=== PATIENT | male | born 1975 | race African-American/Black ===

== ENCOUNTER 2025-03-12 07:53 | Outpatient (OUT) | payer OTHER, SELFPAY ==
--- NOTE | 2025-03-12 07:57 | ECG_ITS ---
The [facility] Test Date: 2025-03-12 Pat Name: TARA ENAMORADO Department: Room: - Gender: Male [place]: : 1975 Requested By: NOA TREJO Order Number: [id number] Reading MD: BOBBI METZGER M.D. Measurements Intervals [place] Rate: 47 P: 10 CT: 169 QRS: 57 QRSD: 102 T: 46 QT: 448 QTc: 397 Interpretive Statements SINUS BRADYCARDIA POSSIBLE LEFT ATRIAL ENLARGEMENT [-0.1mV P WAVE IN V1/V2] POSSIBLE RIGHT VENTRICULAR CONDUCTION DELAY [RSR (QR) IN V1/V2] LEFT VENTRICULAR HYPERTROPHY [VOLTAGE CRITERIA PLUS LAE OR QRS WIDENING] ST ELEVATION, CONSIDER LATERAL INJURY [MARKED ST ELEVATION W/O NORMALLY INFLECTED T WAVE IN I/aVL/V5/V6], early repolarization or repolarization abnormality from LVH Abnormal ECG No previous ECG available for comparison Electronically Signed On 03-12-2025 22:32:00 EDT by BOBBI METZGER M.D.
--- NOTE | 2025-03-12 07:57 | XR_ITS ---
The [address] [address] Patient Name: TARA ENAMORADO MRN: [id number] date: 1975 Sex: M Assigned Patient Location: [facility] Current Patient Location: [facility] Accession/Order Number: [id number] Exam Date: 03/12/2025 09:19 Report Date: 03/12/2025 09:20 At the request of: NOA TREJO MD Procedure: XR chest 2V PA AND LATERAL CHEST: CLINICAL HISTORY: Preoperative clearance COMPARISON: None There is no focal parenchymal consolidation, effusion or pneumothorax. The cardiac, hilar and mediastinal silhouettes are within normal limits. There is no vascular congestion. The visualized bony thorax is intact. There is minimal endplate spurring. XR/XR chest 2V IMPRESSION: NO ACUTE CARDIOPULMONARY ABNORMALITY. Impression dictated by: Anjana Ribera M.D. 03/12/2025 9:20 AM Dictation Location: [place] [address] Electronically authenticated by: [id number] Y Date: 03/12/2025 09:20
[2025-03-12 09:14] LABS: Basophils Percent Auto 0.7 % (0.2-2.0); Eosinophils Absolute Auto 0.1 10^3/uL (0.0-0.7); Hematocrit 41.8 % (42.0-54.0); Hemoglobin 13.8 g/dL (14.0-18.0); Immature Granulocytes Abs Auto 0.01 10^3/uL (0.00-0.03); Immature Granulocytes Pct Auto 0.2 % (0.0-0.5); Mean Corpuscular Hemoglobin 30.9 pg (25.9-34.0); Mean Corpuscular Volume 93.7 fL (80.0-94.0); Mean Platelet Volume 10.7 fL (9.5-13.5); Monocytes Absolute Auto 0.5 10^3/uL (0.3-0.8); Monocytes Percent Auto 8.5 % (1.7-12.0); Neutrophils Absolute Auto 3.4 10^3/uL (1.4-6.5); Neutrophils Percent Auto 55.6 % (43.0-75.0); Platelet Count 211 10^3/uL (150-450); Red Blood Count 4.46 10^6/uL (4.70-6.10); Red Cell Distribution Width 11.8 % (11.0-15.0); White Blood Count 6.1 10^3/uL (4.0-11.0)
[2025-03-12 09:37] LABS: Partial Thromboplastin Time 34.8 sec (22.3-36.2); Prothrombin Time 15.3 sec (9.0-11.6)
--- NOTE | 2025-03-12 09:59 | P.GSHP_ITS ---
History of Present Illness History of Present Illness Chief complaint: Bladder Tumor Narrative: Patient presents for presurgical testing. 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 He has been on Coumadin. The patient recently had gross hematuria and was evaluated with a cystoscopy and is now scheduled for a TURBT. He denies current hematuria, dysuria, or any other complaints. 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 Review of Systems ROS Narrative REVIEW OF SYSTEMS: Negative except as stated in HPI, ten or more systems reviewed. Constitutional: No fever, chills, weakness ENT: No sore throat or epistaxis Cardiovascular: No edema, chest pain, palpitations, or activity intolerance Respiratory: No shortness of breath, cough, or wheezing Musculoskeletal: No joint pain or swelling Gastrointestinal: No abdominal pain, constipation, diarrhea, or vomiting Genitourinary: No dysuria or hematuria Neurological: No numbness, tingling, weakness, or headache Psychiatric: No mood changes PFSH PFSH Medical History (Updated 03/09/25 @ 11:57 by Marissa Bee NP) BPH with obstruction/lower urinary tract symptoms ?N40.1 - Benign prostatic hyperplasia with lower urinary tract symptoms (ICD- 10) ?N13.8 - Other obstructive and reflux uropathy (ICD-10) Anticoagulated ?Z79.01 - MCC (current) use of anticoagulants (ICD-10) BPH (benign prostatic hyperplasia) ?N40.0 - Benign prostatic hyperplasia without lower urinary tract symptoms (ICD-10) Hyperlipidemia ?E78.5 - Hyperlipidemia, unspecified (ICD-10) Hematuria ?R31.9 - Hematuria, unspecified (ICD-10) Lesion of bladder ?N32.9 - Bladder disorder, unspecified (ICD-10) Bladder tumor ?D49.4 - Neoplasm of unspecified behavior of bladder (ICD-10) Pulmonary embolism ?I26.99 - Other pulmonary embolism without acute cor pulmonale (ICD-10) Factor V deficiency ?D68.2 - Hereditary deficiency of other clotting factors (ICD-10) Surgical History (Updated 03/09/25 @ 11:57 by Marissa Bee NP) S/P excision of lipoma ?Z98.890 - Other specified postprocedural states (ICD-10) ?Z86.018 - Personal history of other benign neoplasm (ICD-10) H/O colonoscopy ?Z98.890 - Other specified postprocedural states (ICD-10) H/O cystoscopy ?Z98.890 - Other specified postprocedural states (ICD-10) Family History (Updated 03/12/25 @ 08:23 by Marissa Bee NP) Other Family history of diabetes mellitus Family history of stroke Social History (Updated 03/12/25 @ 08:17 by Marissa Bee NP) Within the past year, how often did you have a drink containing alcohol: monthly or less Smoking status: Never smoker Non-prescribed substance use: denies use 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 Highest level of school completed/degree received: high school graduate Meds Home Medications and Allergies Home Medications ?Medication ?Instructions ?Recorded ?Confirmed ?Type enoxaparin 120 mg/0.8 mL 120 mg subcut Q24H 03/12/25 03/12/25 History subcutaneous syringe warfarin 5 mg tablet 5 mg PO DAILY 03/12/2503/12 History Allergies Allergy/AdvReac Type Severity Reaction Status Date / Time No Known Drug Allergies Allergy Verified 03/12/25 08:15 Exam Narrative Exam Narrative: Constitutional: Awake, alert, comfortable, well-appearing, nontoxic, interactive, vital signs as charted Head: Normocephalic, atraumatic Neck: Supple, normal appearance, normal range of motion, no meningeal signs, no lymphadenopathy Respiratory: No respiratory distress, breath sounds clear Cardiovascular: Bradycardic rate, regular rhythm, strong and regular heart tones Abdomen: Nontender, normal bowel sounds, soft, no CVA tenderness Musculoskeletal: Normal gait, no swelling or edema Skin: No rashes or induration, no lesions, only visible skin inspected Neuro: No neurological deficits, normal sensation Psychiatric: Oriented ?3, normal affect Assessment and Plan Assessment and Plan (1) Bladder tumor: Plan Cystoscopy, TURBT scheduled with Dr. Mejia March 15, 2025.
[2025-03-12 11:21] LABS: BUN Creatinine Ratio 12.1; Calcium 9.4 mg/dL (8.5-10.1); Carbon Dioxide 31.4 mmol/L (21.0-32.0); Chloride 105 mmol/L (98-107); Estimated GFR (African America >60 (>=60 mL/min/1.73m^2); Estimated GFR (Non-African Ame >60 (>=60 mL/min/1.73m^2); Glucose 100 mg/dL (74-106); Potassium 4.4 mmol/L (3.5-5.1); Sodium 142 mmol/L (136-145)
== END 2025-03-12 07:54 | disposition home or self-care (01) ==
LOC: PST 07:53
PROVIDERS: Family Provider Family Medicine; PCP Family Medicine; Visit Provider Urology
DX: Z01.810 Encounter for preprocedural cardiovascular examination (principal); Z01.812 Encounter for preprocedural laboratory examination; Z01.818 Encounter for other preprocedural examination; D49.4 Neoplasm of unspecified behavior of bladder; R31.9 Hematuria, unspecified
CPT/HCPCS: 71046; 80048; 85025; 85610; 85730; 93005; G0463

== ENCOUNTER 2025-04-17 08:01 | Outpatient (OUT) | payer OTHER, SELFPAY ==
--- OUTSIDE RECORDS SUMMARY | 2025-04-17 08:04 | XMS_ITS | Clinical Summary ---
Author Organization [facility] Address [address] [place] [address] Care Team Providers Care Improvement Lead Name Role Phone Izaiah Watson MD Primary Care Provider [phone] Duane Armand Christie Unavailable Kaylyn Allen RN Unavailable [phone] Radha Bardales PA-C Unavailable [phone] Allergies No known active allergies Medications warfarin (COUMADIN) 5 mg tablet Take 5 mg by mouth as directed. 05/11/2018 Active Active Problems Problem Noted Date Diagnosed Date Pulmonary embolus 08/12/2018 Heterozygous factor V Leiden mutation 08/12/2018 Social History Tobacco Use Types Packs/Day Years Used Date Smoking Tobacco: Never Smokeless Tobacco: Never PHQ-2 Answer Date Recorded PHQ-2 score 0 02/21/2019 Area Deprivation Index Answer Date Jonn rded National Score (1-100), lower number is lower ri sk Not on file 09/12/2020 State Score (1-10), lower number is lower risk N ot on file 09/12/2020 Data from: https://www.neighborhoodatlas.medicine.[facility].edu/. Last address used for calculation Not on file 09/12/2020 Sex and Gender Information Value Date Recorded Sex Assigned at Not on file Legal Sex Male 10:55 AM EDT Gender Identity Not on file Sexual Orientation Not on file Last Filed Vital Signs Vital Sign Reading Time Taken Comments Blood Pressure 120/75 02/21/2019 2:46 PM EDT Pulse 129 02/21/2019 2:46 PM EDT Temperature 36.7 C (98.1 F) 02/21/2019 2:46 PM EDT Respiratory Rate 18 02/21/2019 2:46 PM EDT Oxygen Saturation 99% 02/21/2019 2:46 PM EDT Inhaled Oxygen Concentration - - Weight 77.1 kg (170 lb) 02/21/2019 2:46 PM EDT Height 177.2 cm (5' 9.76 ) 02/21/2019 2:46 PM ED T Body Mass Index 24.56 02/21/2019 2:46 PM EDT Plan of Treatment Health Maintenance Due Date Last Done Comments Anxiety Screening 1992 Depression Screening 1992 HIV Screening 1992 Hepatitis C Screening 1992 DTaP,Tdap,Td Vaccine (1 - Tdap) 1993 Hepatitis B Vaccine (1 of 3 - 19+ 3-dose series) 10/[address] Colonography 2019 Cologuard (FIT-DNA) 2019 Colonoscopy 2019 Colorectal Cancer Screening 2019 Diabetes Screening 2019 Fecal Occult Blood 2019 Prostate Cancer Screening Discussion 2019 Sigmoidoscopy 2019 Covid-19 Vaccine ( - 2023-25 season) 2024 Pneumococcal Vaccine: 50+ (1 of 1 - PCV) 2024 Shingrix Vaccine (1 of 2) 2024 Influenza Vaccine (#1) 2025 Insurance [facility] MEDICA[facility] Care Teams Improvement Lead Relationship Specialty Start Date End Date Izaiah Watson MD [address] [place] [phone] PCP - General Family Medicine 05/18/18 Armand Zepeda [address] [place] [phone] Physician Hematology/Oncology 05/18/18 Kaylyn Allen RN [address] [place] [address] [place] [address] Dag Coater 05/18/18 Radha Bardales PA-C [address] [place] [address] [place] [address] Hematology/Oncology 05/18/18
--- OUTSIDE RECORDS SUMMARY | 2025-04-17 08:04 | XMS_ITS | Clinical Summary ---
Author Organization [facility] Address [address] [place] [address] Phone Care Team Providers Care Acquisition Cost Estimator Name Role Phone Unavailable Primary Care Provider Unavailabl e Encounters Date Type Department Care Team Description 03/14/2025 Scanned Document [facility] [address] [place] [address] Scanning, Generic Provider 03/13/2025 Scanned Document [facility] [address] [place] [address] Scanning, Generic Provider from Last 3 Months Social History Tobacco Use Types Packs/Day Years Used Date Smoking Tobacco: Never Assessed Sex and Gender Information Value Date Recorded Sex Assigned at Not on file Legal Sex Male 6:41 AM EST Gender Identity Not on file Sexual Orientation Not on file Plan of Treatment Upcoming Encounters Date Type Department Care Team (Late st Contact Info) Description 12/13/2025 3:00 PM EDT Office Visit [facility] [address] [address] Ozzie Sharma MD 703 [facility] 2, [address] [address] Procedures Procedure Name Priority Date/Time Associated Diagnosis Comments ECHOCARDIOGRAM 03/13/2025 from Last 3 Months Results * Echocardiogram (03/13/2025) Narrative 03/13/2025 Ordered by an unspecified provider. us Generic Provider Scanning CV ECHO PROCEDURES Fin al Result from Last 3 Months
--- OUTSIDE RECORDS SUMMARY | 2025-04-17 08:04 | XMS_ITS | Encounter Summary ---
Author Organization [facility] Address [address] [place] [address] Phone Care Team Providers Care Bridge Operator Name Role Phone Unavailable Primary Care Provider Unavailabl e Encounter Details Date Type Department Care Team (Late st Contact Info) Description 03/13/2025 Scanned Document [facility] [address] [place] [phone] Scanning, Generic Provider Social History Tobacco Use Types Packs/Day Years Used Date Smoking Tobacco: Never Assessed Sex and Gender Information Value Date Recorded Sex Assigned at Not on file Legal Sex Male 6:41 AM EST Gender Identity Not on file Sexual Orientation Not on file documented as of this encounter Plan of Treatment Upcoming Encounters Date Type Department Care Team (Late st Contact Info) Description 12/13/2025 3:00 PM EDT Office Visit [facility] [address] [phone] Ozzie Sharma MD [address] [facility] 2, [address] [address] documented as of this encounter Procedures Procedure Name Priority Date/Time Associated Diagnosis Comments ECHOCARDIOGRAM 03/13/2025 documented in this encounter Results * Echocardiogram (03/13/2025) Narrative 03/13/2025 Ordered by an unspecified provider. us Generic Provider Scanning CV ECHO PROCEDURES Fin al Result documented in this encounter Visit Diagnoses Not on filedocumented in this encounter
--- OUTSIDE RECORDS SUMMARY | 2025-04-17 08:04 | XMS_ITS | Encounter Summary ---
Author Organization [facility] Address [address] [place] [address] Phone Care Team Providers Care Material Requirements Worker Name Role Phone Unavailable Primary Care Provider Unavailabl e Encounter Details Date Type Department Care Team (Late st Contact Info) Description 03/14/[address] [facility] [address] [place] [place] [phone] Scanning, Generic Provider Social History Tobacco Use [...] Description 12/13/2025 3:00 PM EDT Office Visit [facility] [address] [phone] Ozzie Sharma MD 703 [facility] 2, [address] [address] documented as of this encounter Visit Diagnoses Not on filedocumented in this encounter
--- NOTE | 2025-04-17 08:09 | ECG_ITS ---
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: : 1975 Requested By: NOA TREJO Order Number: [id number] Reading MD: EULALIA HUNT Measurements Intervals Niland Rate: 50 P: 9 MS: 167 QRS: 104 QRSD: 102 T: 73 QT: 435 QTc: 400 Interpretive Statements SINUS BRADYCARDIA WITH OCCASIONAL SUPRAVENTRICULAR PREMATURE COMPLEXES POSSIBLE LEFT ATRIAL ENLARGEMENT [-0.1mV P WAVE IN V1/V2] MARKED RIGHT AXIS DEVIATION [QRS AXIS > 100] POSSIBLE LEFT VENTRICULAR HYPERTROPHY [VOLTAGE CRITERIA PLUS LAE OR QRS WIDENING] ST ELEVATION, CONSIDER LATERAL INJURY [MARKED ST ELEVATION W/O NORMALLY INFLECTED T WAVE IN I/aVL/V5/V6], early repolarization or repolarization abnormality from LVH ST DEVIATION AND MARKED T-WAVE ABNORMALITY, CONSIDER ANTERIOR ISCHEMIA [-0.5+ mV T WAVE IN V3/V4] Compared to ECG 03/12/2025 08:44:47 Right-axis deviation now present Electronically Signed On 04-19-2025 16:17:06 EDT by EULALIA HUNT
[2025-04-17 09:06] LABS: Hematocrit 43.2 % (42.0-54.0); Hemoglobin 13.7 g/dL (14.0-18.0); Immature Granulocytes Abs Auto 0.00 10^3/uL (0.00-0.03); Immature Granulocytes Pct Auto 0.0 % (0.0-0.5); Lymphocytes Absolute Auto 1.7 10^3/uL (1.2-3.8); Mean Corpuscular HGB Conc 31.7 g/dL (29.9-35.2); Mean Corpuscular Hemoglobin 30.0 pg (25.9-34.0); Mean Corpuscular Volume 94.5 fL (80.0-94.0); Platelet Count 215 10^3/uL (150-450); Red Blood Count 4.57 10^6/uL (4.70-6.10); White Blood Count 4.5 10^3/uL (4.0-11.0)
[2025-04-17 09:21] LABS: Anion Gap 11.1; Blood Urea Nitrogen 16.0 mg/dL (7.0-18.0); Calcium 9.0 mg/dL (8.5-10.1); Carbon Dioxide 30.4 mmol/L (21.0-32.0); Chloride 108 mmol/L (98-107); Estimated GFR (African America >60 (>=60 mL/min/1.73m^2); Estimated GFR (Non-African Ame >60 (>=60 mL/min/1.73m^2); Glucose 99 mg/dL (74-106); Potassium 4.5 mmol/L (3.5-5.1); Sodium 145 mmol/L (136-145)
[2025-04-17 09:24] LABS: INR 2.99; Partial Thromboplastin Time 33.3 sec (22.3-36.2); Prothrombin Time 28.4 sec (9.0-11.6)
== END 2025-04-17 08:02 | disposition home or self-care (01) ==
LOC: PST 08:02
PROVIDERS: Family Provider Family Medicine; PCP Student in an Organized Health Care Education/Training Program; Visit Provider Urology
DX: Z01.812 Encounter for preprocedural laboratory examination (principal); D49.4 Neoplasm of unspecified behavior of bladder
CPT/HCPCS: 80048; 85025; 85610; 85730; 93005; G0463

== ENCOUNTER 2025-04-24 08:23 | Day surgery (SDC) | payer OTHER, SELFPAY ==
[2025-03-12 08:42] VITALS: BP 118/79; PULSE 49; TEMP 36.3; O2SAT 100; BMI 22.6
--- OUTSIDE RECORDS SUMMARY | 2025-04-17 07:16 | XMS_ITS | Continuity of Care Document ---
Author Organization [facility] Address [address] [place] [address] Phone Care Team Providers Care Commercial Glazier Name Role Phone Izaiah Watson MD Primary Care Provider [phone] Izaiah Watson MD Referring Provider Cleo FloodD Attending Provider Kelly Magallanes [facility] Attending Provider Gamal Leslie DO Attending Provider [phone] Senia Moeller MD Emergency Provider Slim Braun MD Admit Provider Slim Braun MD Attending Provider Care Teams Patient Care Team Team Status: Active Member Role Status Dates Izaiah Watson MD Primary Care Provider Active Visit Care Team Team Status: Inactive Member Role Status Dates Izaiah Watson MD Primary Care Provider Active S tart: January 23, 2025 End: January 23, 2025 Izaiah Watson MD Referring Provider Active Star t: January 23, 2025 End: January 23, 2025 Cleo Flood PharmD Attending Provider Active Start: January 23, 2025 End: January 23, 2025 Visit Care Team Team Status: Inactive Member Role Status Niels Watson MD Primary Care Provider Active S tart: February 06, 2025 End: February 06, 2025 Izaiah Watson MD Referring Provider Active Star t: February 06, 2025 End: February 06, 2025 Kelly Morrissey RPH Attending Provider Active Start: February 06, 2025 End: February 06, 2025 Visit Care Team Team Status: Inactive Member Role Status Dates Izaiah Watson MD Primary Care Provider Active S tart: February 27, 2025 End: February 27, 2025 Izaiah Watson MD Referring Provider Active Star t: February 27, 2025 End: February 27, 2025 Kelly Morrissey RPH Attending Provider Active Start: February 27, 2025 End: February 27, 2025 Visit Care Team Team Status: Inactive Member Role Status Dates Izaiah Watson MD Primary Care Provider Active S tart: March 09, 2025 End: March 09, 2025 Izaiah Watson MD Referring Provider Active Star t: March 09, 2025 End: March 09, 2025 Kelly Morrissey RPH Attending Provider Active Start: March 09, 2025 End: March 09, 2025 Visit Care Team Team Status: Inactive Member Role Status Dates Izaiah Watson MD Primary Care Provider Active S tart: March 13, 2025 End: March 13, 2025 Gamal Ruiz DO Attending Provider Active S tart: March 13, 2025 End: March 13, 2025 Visit Care Team Team Status: Inactive Member Role Status Dates Izaiah Watson MD Primary Care Provider Active S tart: March 13, 2025 End: March 15, 2025 Senia Moeller MD Emergency Provider Active Start: March 13, 2025 End: March 15, 2025 Slim Braun MD Admit Provider Active Start: March 13, 2025 End: March 15, 2025 Slim Braun MD Attending Provider Active St art: March 13, 2025 End: March 15, 2025 Visit Care Team Team Status: Inactive Member Role Status Dates Izaiah Watson MD Primary Care Provider Active S tart: March 21, 2025 End: March 21, 2025 Izaiah Watson MD Referring Provider Active Star t: March 21, 2025 End: March 21, 2025 Kelly Morrissey RPH Attending Provider Active Start: March 21, 2025 End: March 21, 2025 Visit Care Team Team Status: Inactive Member Role Status Dates Izaiah Watson MD Primary Care Provider Active S tart: April 03, 2025 End: April 03, 2025 Izaiah Watson MD Referring Provider Active Star t: April 03, 2025 End: April 03, 2025 Kelly Morrissey RPH Attending Provider Active Start: April 03, 2025 End: April 03, 2025 Patient Care Team Team Status: Inactive Member Role Status Dates Izaiah Watson MD Primary Care Provider Active S tart: April 17, 2025 End: April 17, 2025 Izaiah Watson MD Referring Provider Active Star t: April 17, 2025 End: April 17, 2025 Kelly Morrissey RPH Attending Provider Active Start: April 17, 2025 End: April 17, 2025 Chief Complaint and Reason for Visit Chief Complaint Admit Date INR f/u January 23, 2025 10: 50am INR f/u February 27, 2025 12:48 pm pre-procedure instructions Lovenox March 09, 2025 6:53am R94.31 March 13, 2025 9:03 am abnormal ekg March 13, 2025 12:4 0pm INR f/u see [facility] March 21, 2025 7:48 am INR f/u April 03, 2025 7:44a m INR f/u April 17, 2025 10:4 8am Reason for Visit Admit Date Factor V Leiden January 23, 2025 10: 50am Pulmonary embolism and infarction January 23, 2025 10:50am RV (right ventricular) mural thrombus Ap ril 2024 10:50am Factor V Leiden February 06, 2025 10:50a m Pulmonary embolism and infarction February 10:50am RV (right ventricular) mural thrombus Ma 2024 10:50am Factor V Leiden February 27, 2025 12:48 pm Pulmonary embolism and infarction February 272024 12:48pm RV (right ventricular) mural thrombus Ma 2024 12:48pm Factor V Leiden March 09, 2025 6:53a m Pulmonary embolism and infarction March 092024 6:53am RV (right ventricular) mural thrombus Ju ne 2024 6:53am Abnormal ECG March 13, 2025 12:4 0pm Factor V Leiden March 13, 2025 12:4 0pm Pulmonary embolism and infarction March 042024 12:40pm Factor V Leiden March 21, 2025 7:48 am Pulmonary embolism and infarction March 042024 7:48am RV (right ventricular) mural thrombus Ju ne 2024 7:48am Factor V Leiden April 03, 2025 7:44a m Pulmonary embolism and infarction April 032024 7:44am RV (right ventricular) mural thrombus Ju ly 2024 7:44am Factor V Leiden April 17, 2025 10:4 8am Pulmonary embolism and infarction April 032024 10:48am RV (right ventricular) mural thrombus Ju ly 2024 10:48am Reason for Referral Referring Provider Name Referring Provider Address Referring Provider Phone Referral Date Requested Appointment Date Referral Reason Slim Braun [address] [place] [address] Work Phone: Previously scheduled appointment. Slim Braun [address] [email or web address] [id number] Work Phone: Previously scheduled appointment. You have gibran edward scheduled for a follow up appointment for the following date and time, please call to reschedule if needed. Allergies, Adverse Reactions, Alerts Allergen Type Severity Reaction Last Updated Verified Status No Known Allergies Allergy Unknown March 13, 2025 9:52a m Yes Active Social History Smoking Status Status Start Date End Date Date of Observa tion Never smoked tobacco (finding) March 14, 2025 12:36pm Observation Status Observation Response Date of Response Legal Sex Male (finding) Sex Assigned At Male October Social History Assessments Assessment Value Date Recorded SDOH Follow up March 14, 2025 9:27am Question Answer Date Recorded Has the SDOH screening changed since admission? N March 14, 2025 9:27am Family History Relationship Condition Age at Onset Recorded Date/T emani father Diabetes mellitus Unknown Unknown mother Diabetes mellitus Unknown Unknown Problems Active Problems Medical Problem Onset Date Status RV (right ventricular) mural thrombus Unknown Active Factor V Leiden Unknown Active Right ventricular mass Unknown Active Pulmonary embolism and infarction Unknown Active Abnormal ECG Unknown Active Inactive/Resolved Problems Medical Problem Onset Date Status Hematuria Unknown Resolved Elevated CK Unknown Resolved Diverticulosis Unknown Resolved Diarrhea Unknown Resolved Supratherapeutic INR Unknown Resolved Medications Medication Status Dose Units Route Directions Qty Days St art Date Stop Date End Date Instructions Adherence Sod Picosulf-Ma g Ox-Citric Ac (Clenpiq) 10 mg-3.5 gram- 12 gram/175 mL solution Discont inued 175 ML PO Daily 350 1 May 05, 2024 12:00a m Augus t 2023 9:09a m take first dose at 3:00 PM followed by four 8oz glasses of liquid take second dose at 9:00 PM followed by 3 8oz glasses of liquid Enoxaparin (Lovenox) 80 mg/0.8 mL Syringe Discont inued 80 MG SUBCUT BID@0400,16 00 0 May 11, 2018 12:00a m Augus t 2017 8:28a m see handwritten Rx - DISCONTINUE once INR between 2-3 Warfarin (Coumadin) 5 mg Tablet Discont inued 5 MG PO Daily May 11, 2018 12:00a m Febru 2023 12:31 pm Aspirin 81 mg tablet,chew able Active 81 MG PO every week May 29, 2024 12:00a m FreeTextSi capsule Orally twice a week; Note: Source Status: Taking; Provider: Remigio Gallo ( ) Unknown Calcium Carbonate (Calcium 600) 600 mg calcium (1,500 mg) tablet Active 600 MG PO .prn May 29, 2024 12:00a m Unknown Magnesium Oxide 250 mg magnesium tablet Active 250 MG PO .prn May 29, 2024 12:00a m Free[employer]Si tablet with a meal Orally Once a day; Note: Source Status: Taking; Provider: Remigio Gallo ( ) Unknown Cholecalcif verna (Vitamin D3) 125 mcg (5,000 unit) capsule Active 5000 UNIT PO .prn May 29, 2024 12:00a m Unknown Warfarin (Coumadin) 5 mg tablet Active 5 MG PO Daily 2023 12:31p m Unknown Immunizations Immunization Event Date Not Given Reason Dose Number Production Operator Lot Number Vaccine Information Statement (VIS) Detail Administration Location COVID-19 Heather Gross ([employer]) September 21, 2021 COVID-19 Heather Gross ([employer]) October 12, 2021 Procedures Procedure Date Performed Status XR chest 2V* March 13, 2025 9:57am completed [facility] Angio March 15, 2025 10:15am compl eted March 15, 2025 10:15am complete d Relevant Diagnostic Tests and/or Laboratory Data Laboratory Results Test Collection Date/Time Result Date/Time Result Interpretation Reference Range Result Comment Performing Site Bedside INR (LAB) January 23, 2025 10:57am January 23, 2025 11:08am 2.0 Bedside INR (LAB) February 06, 2025 10:52am February 06, 2025 11:01am 3.1 Bedside INR (LAB) February 27, 2025 12:49pm February 27, 2025 1:02pm 3.1 Bedside INR (LAB) March 09, 2025 6:55am March 09, 2025 7:21am 2.5 Bedside INR (LAB) March 21, 2025 7:52am March 21, 2025 8:09am 1.9 Bedside INR (LAB) April 03, 2025 7:46am April 03, 2025 8:23am 2.4 Correcte d White Blood Count March 15, 2025 7:18am March 15, 2025 7:50am 4.6 10*3/uL 4.1-10.5 [facility] [id number] [address] [facility] [address] Uncorrec cash WBC Count March 15, 2025 7:18am March 15, 2025 7:50am 4.6 10*3/uL 4.1-10.5 [facility] [id number] [address] [facility] [address] Red Blood Count March 15, 2025 7:18am March 15, 2025 7:50am 4.30 10*6/uL 3.90-5.60 [facility] [id number] [address] [facility] [address] Hemoglob in March 15, 2025 7:18am March 15, 2025 7:50am 13.0 g/dL 13.0-17.0 [facility] [id number] [address] [facility] [address] Hematocr it March 15, 2025 7:18am March 15, 2025 7:50am 39.6 % 38.8-50.0 [facility] [id number] [address] [place] [address] Mean Corpuscu lar Volume March 15, 2025 7:18am March 15, 2025 7:50am 92.0 fL 83.5-101 [facility] [id number] [address] [facility] [address] Mean Corpuscu lar Hemoglob in March 15, 2025 7:18am March 15, 2025 7:50am 30.2 pg 27.5-35.2 [facility] [id number] [address] [place] [address] Mean Corpuscu lar Hemoglob in Concent March 15, 2025 7:18am March 15, 2025 7:50am 32.9 g/dL 32.5-35.6 [facility] [id number] [address] [place] [address] Red Cell Distribu tion Width March 15, 2025 7:18am March 15, 2025 7:50am 12.7 % 12.0-14.8 [facility] [id number] [address] [place] [address] Platelet Count March 15, 2025 7:18am March 15, 2025 7:50am 189 10*3/uL 150-450 [facility] [id number] [address] [place] [address] Mean Platelet Volume March 15, 2025 7:18am March 15, 2025 7:50am 9.0 fL 6.6-10.1 [facility] [id number] [address] [place] [address] Monocyte Distribu tion Width March 13, 2025 10:36am March 13, 2025 10:54am 17.54 % 0.00-20.00 [facility] [id number] [address] [place] [address] Neutroph ils (%) (Auto) March 15, 2025 7:18am March 15, 2025 7:50am 53.1 % . [facility] [id number] [address] [place] [address] Lymphocy brandie (%) (Auto) March 15, 2025 7:18am March 15, 2025 7:50am 35.5 % . [facility] [id number] [address] [place] [address] Monocyte s (%) (Auto) March 15, 2025 7:18am March 15, 2025 7:50am 8.0 % . [facility] [id number] [address] [facility] [address] Eosinoph ils (%) (Auto) March 15, 2025 7:18am March 15, 2025 7:50am 2.9 % . [facility] [id number] [address] [facility] [address] Basophil s (%) (Auto) March 15, 2025 7:18am March 15, 2025 7:50am 0.5 % . [facility] [id number] [address] [facility] [address] Nucleate d RBC Relative Count (auto) March 15, 2025 7:18am March 15, 2025 7:50am 0.1 /100{WBC} 0-0.5 [facility] [id number] [address] [place] [id number] Neutroph ils # (Auto) March 15, 2025 7:18am March 15, 2025 7:50am 2.5 10*3/uL 1.8-7.7 [facility] [id number] [address] [facility] [address] Lymphocy brandie # (Auto) March 15, 2025 7:18am March 15, 2025 7:50am 1.6 10*3/uL 1.00-4.8 [facility] [id number] [address] [place] [address] Monocyte s # (Auto) March 15, 2025 7:18am March 15, 2025 7:50am 0.4 10*3/uL 0.0-0.8 [facility] [id number] [address] [facility] [address] Eosinoph ils # (Auto) March 15, 2025 7:18am March 15, 2025 7:50am 0.1 10*3/uL 0.0-0.45 [facility] [id number] [address] [facility] [address] Basophil s # (Auto) March 15, 2025 7:18am March 15, 2025 7:50am 0.0 10*3/uL 0.0-0.2 [facility] [id number] [address] [place] [id number] Prothrom bin Time March 15, 2025 7:18am March 15, 2025 8:15am 12.4 s 9.0-12.9 A hematocrit value greater than 55% may lead to inaccurate results in coagulation testing. Patients having hematocrit values >55% require a special collection tube for coagulation studies. Please contact the laboratory at for redraw instruction s. [facility] [id number] [address] [facility] [address] Prothrom b Time Internat ional Ratio March 15, 2025 7:18am March 15, 2025 8:15am 1.1 INR Therapeutic Range A) Pre- and Peroperativ e OAT started two weeks before surgery. NOT HIP SURGERY: 1.5 - 2.5 HIP SURGERY: 2 - 3B) Primary and secondary prevention of venous THROMBOSIS: 2 - 3C) Active venous thrombosis, pulmonary embolismand prevention of recurrent venous thrombosis: 2 - 3D) Prevention of arterial thromboembo lismincludi ng patients with mechanical heart valves: 3 - 4.5 [facility] [id number] [address] [facility] [address] Activate d Partial Thrombop last Time March 15, 2025 7:18am March 15, 2025 8:15am 25.6 s 25.1-36.5 A hematocrit value greater than 55% may lead to inaccurate results in coagulation testing. Patients having hematocrit values >55% require a special collection tube for coagulation studies. Please contact the laboratory at for redraw instruction s. [facility] [id number] [address] [facility] [address] Urine Color March 13, 2025 12:15pm March 13, 2025 12:41pm Yellow Yellow [facility] [id number] [address] [facility] [address] Urine Appearan ce March 13, 2025 12:15pm March 13, 2025 12:41pm Clear Clear [facility] [id number] [address] [facility] [address] Urine Specific [place] March 13, 2025 12:15pm March 13, 2025 12:41pm 1.032 Above high normal 1.001-1.03 0 [facility] [id number] [address] [facility] [address] Urine pH March 13, 2025 12:15pm March 13, 2025 12:41pm 5.5 5.0-9.0 [facility] [id number] [address] [facility] [address] Urine Leukocyt e Esterase March 13, 2025 12:15pm March 13, 2025 12:41pm Negative Negative [facility] [id number] [address] [facility] [address] Urine Nitrite March 13, 2025 12:15pm March 13, 2025 12:41pm Negative Negative [facility] [id number] [address] [facility] [address] Urine Protein March 13, 2025 12:15pm March 13, 2025 12:41pm Trace mg/dL Above high normal Negative [facility] [id number] [address] [facility] [address] Urine Glucose (UA) March 13, 2025 12:15pm March 13, 2025 12:41pm Normal mg/dL Normal [facility] [id number] [address] [facility] [address] Urine Ketones March 13, 2025 12:15pm March 13, 2025 12:41pm Negative Negative [facility] [id number] [address] [facility] [address] Urine Urobilin ogen March 13, 2025 12:15pm March 13, 2025 12:41pm Normal mg/dL Normal [facility] [id number] [address] [place] [address] Urine Bilirubi n March 13, 2025 12:15pm March 13, 2025 12:41pm Negative Negative [facility] [id number] [address] [facility] [address] Urine Occult Blood March 13, 2025 12:15pm March 13, 2025 12:41pm Negative Negative [facility] [id number] [address] [place] [address] Urine RBC March 13, 2025 12:15pm March 13, 2025 12:47pm 1-2 [HPF] 0-4 [facility] [id number] [address] [facility] [address] Urine WBC March 13, 2025 12:15pm March 13, 2025 12:47pm 1-2 [HPF] 0-4 [facility] [id number] [address] [facility] [address] Urine Squamous Epitheli al Cells March 13, 2025 12:15pm March 13, 2025 12:47pm N/A [facility] [id number] [address] [facility] [address] Urine Bacteria March 13, 2025 12:15pm March 13, 2025 12:47pm None seen [HPF] None Seen [facility] [id number] [address] [place] [address] Urine Hyaline Casts March 13, 2025 12:15pm March 13, 2025 12:47pm None [LPF] 0-8 [facility] [id number] [address] [facility] [address] Urine Mucus March 13, 2025 12:15pm March 13, 2025 12:47pm 1+ [LPF] Abnormal (applies to non-numeric results) [facility] [id number] [address] [facility] [address] Glucose Level March 13, 2025 10:36am March 13, 2025 11:12am 91 mg/dL 70-100 ADA recommended reference rangeRandom Glucose Reference Range is dependent on time and content of last meal. Glucose of more than 200 mg/dL in a nonstressed , ambulatory subject supports the diagnosis of Diabetes Mellitus. [facility] [id number] [address] [facility] [address] Blood Urea Nitrogen March 15, 2025 7:18am March 15, 2025 8:16am 14 mg/dL 7-25 [facility] [id number] [address] [place] [address] Creatini ne March 15, 2025 7:18am March 15, 2025 8:16am 1.16 mg/dL 0.70-1.30 [facility] [id number] [address] [place] [address] Estimate d GFR (CKD-EPI ) March 15, 2025 7:18am March 15, 2025 8:16am > 60.0 mL/Min [facility] [id number] [address] [place] [address] Sodium Level March 15, 2025 7:18am March 15, 2025 8:16am 138 mmol/L 136-145 [facility] [id number] [address] [place] [address] Potassiu m Level March 15, 2025 7:18am March 15, 2025 8:16am 4.2 mmol/L 3.5-5.1 [facility] [id number] [address] [place], [place] [address] Chloride Level March 15, 2025 7:18am March 15, 2025 8:16am 105 mmol/L 98-107 [facility] [id number] [address] [place], [place] [address] Carbon Dioxide Level March 15, 2025 7:18am March 15, 2025 8:16am 31.1 mmol/L Above high normal 21.0-31.0 [facility] [id number] [address] [place], [place] [address] Anion Gap March 15, 2025 7:18am March 15, 2025 8:16am 6.1 mEq/L 6.0-15.0 [facility] [id number] [address] [place], [place] [address] Calcium Level March 13, 2025 10:36am March 13, 2025 11:12am 9.0 mg/dL 8.6-10.3 [facility] [id number] [address] [place], [place] [address] Magnesiu m Level March 14, 2025 6:16am March 14, 2025 6:52am 1.8 mg/dL Below low normal 1.9-2.7 [facility] [id number] [address] [place] [address] Total Creatine Kinase March 13, 2025 10:36am March 13, 2025 11:12am 626 U/L Above high normal 30-223 [facility] [id number] [address] [place], [place] [address] Troponin I High Sensitiv ity March 14, 2025 6:16am March 14, 2025 7:16am 6 ng/L 0-20 The Troponin units of report have been changed to meet the Chest Pain Accreditati on requirement , element EC5.M1l2. Troponin units are changed from pg/ml to ng/L. Also, the decimal is removed and results are in whole numbers. [facility] [id number] [address] [place], [place] [address] B-Type Natriure tic Peptide March 13, 2025 10:36am March 13, 2025 11:18am 25.0 pg/mL 5-100 [facility] [id number] [address] [facility] [address] Choleste rol Level March 14, 2025 6:16am March 14, 2025 6:52am 201 mg/dL Above high normal 140-200 Chol less than 200 mg/dl low riskChol 201-239 mg/dl borderline riskChol 240 mg/dl and greater high risk [facility] [id number] [address] [place] [address] HDL Choleste rol March 14, 2025 6:16am March 14, 2025 6:52am 68 mg/dL 23-92 HDL CHOL ATP-III CLASSIFICAT ION Cardiovascu lar RiskHDL > or equal to 60 mg/dL LOWHDL < 40 mg/dL HIGH [facility] [id number] [address] [place] [address] Triglyce rides Level March 14, 2025 6:16am March 14, 2025 6:52am 81 mg/dL 0-149 TRIG ATP III CLASSIFICAT IONTRIG less than 150 mg/dL NormalTRIG 150-199 mg/dL Borderline highTRIG 200-500 mg/dL High TRIG greater than 500 mg/dL Very highStandar d traceable to the Center for Disease Conrtrol and Prevention (CDC) test method. [facility] [id number] [address] [place] [address] LDL Choleste rol, Calculat ed March 14, 2025 6:16am March 14, 2025 6:52am 117 mg/dL Above high normal 0-100 LDL ATP III CLASSIFICAT IONLDL less than 100 mg/dL OptimalLDL 100-129 mg/dL Near or above optimalLDL 130-159 mg/dL Borderline highLDL 160-189 mg/dL HighLDL greater than 189 mg/dL Very high [facility] [id number] [address] [place] [address] VLDL Choleste rol March 14, 2025 6:16am March 14, 2025 6:52am 16 mg/dL [facility] [id number] [address] [place] [address] Choleste rol/HDL Ratio March 14, 2025 6:16am March 14, 2025 6:52am 3.0 <5.0 [facility] [id number] [address] [place] [address] Pharmacy Creatini rosa isela montague (Chem March 15, 2025 7:18am March 15, 2025 8:16am 81.14 [facility] [id number] [address] [place], [place] [address] Diagnostic Imaging Reports Author Nehemiah Bautista [facility] Authored March 13, 2025 10:2 2am Report Dictated Date/Time Dictated By Status Radiology Report March 13, 2025 10:22am Nehemiah Bautista Jr DO completed [facility] [place] [place] Main [place] [address] [place] [address] XRay Report Signed Patient: Walter Jansen MR#: [id number] : 1975 Acct:[id number] Age/Sex: 49 / M ADM Date: 5 Loc: Room: [address] [place] [address] Type: DIS INOo Attending Dr: Slim Braun MD Copies to: MD Slim Domínguez MD~ Ordering Provider: Senia Moeller MD Date of Service: 03/13/25 XR/XR chest 2V*: Recheck/Abnormal Lab/Rx Chest 2 views CLINICAL HISTORY: Abnormal EKG. COMPARISON: None FINDINGS: Heart normal in size. No lung consolidation pneumothorax pleural effusion or free air. XR/XR chest 2V* IMPRESSION: NO ACUTE CARDIOPULMONARY ABNORMALITY. Impression dictated by: Nehemiah Bautista Jr., D.O. 03/13/2025 10:23 AM Dictation Location: [place] [address] Transcribed By: [facility] 03/13/25 1023 Dictated By: Nehemiah Bautista Jr, DO 03/13/25 1022 Signed By: <Electronically signed by Nehemiah Bautista Jr, DO in OV> 03/13/25 1023 Vital Signs Vital Reading Result Reference Range Collection Date/Time Height 71 [in_i] March 13, 2025 4:14pm Weight 77.30 kg March 15, 2025 6:00am Body Temperature 97.7 [degF] 97.6-99.0 March 15, 2025 1:20pm Heart Rate 48 /min 60-100 March 15, 2025 1:20pm Respiratory rate 18 /min 12-24 March 15, 2025 1:20pm Oxygen saturation by Pulse oximetry 100 % 95-100 March 15, 2025 1:20 pm BP Systolic 114 mm[Hg] 100-140 March 15, 2025 1:20pm BP Diastolic 64 mm[Hg] 60-100 March 15, 2025 1:20pm Advance Directives Advance Directive Response Recorded Date/ Time Advance Directives No May 10, 2 018 1:31am Insurance Providers Guarantor Walter Jansen Address [address] [place] [phone] Contact Info. Home Phone: Payer Policy Id Subscriber's Name Subscriber Id Effectiv e Date Expiration Date [employer] [id number] Walter Jansen [id number] Encounters Encounter Location(s) Arrival/Admit Date Discharge/Depart Date Provider(s) Departed Physician/Provi heather Office Visit -[facility] January 23, 2025 10:50am January 23, 2025 11:11am Cleo Flood RP Departed Physician/Provi heather Office Visit -[facility] February 06, 2025 10:50am February 06, 2025 11:01am Kelly Morrissey RPH Departed Physician/Provi heather Office Visit -[facility] February 27, 2025 12:48pm February 27, 2025 1:02pm Kelly Morrissey RPH Departed Physician/Provi heather Office Visit -[facility] March 09, 2025 6:53am March 09, 2025 7:22am Kelly Morrissey RPH Departed Clinical -Electrodiagnost ics March 13, 2025 9:03am March 13, 2025 9:04am Gamal Ruiz DO Discharged Inpatient -[facility] March 13, 2025 12:40pm March 15, 2025 2:36pm Slim Braun MD Departed Physician/Provi heather Office Visit -[facility] March 21, 2025 7:48am March 21, 2025 8:09am Kelly Morrissey RPH Departed Physician/Provi heather Office Visit -[facility] April 03, 2025 7:44am April 03, 2025 8:23am Kelly Morrissey RPH Departed Physician/Provi heather Office Visit -[facility] April 17, 2025 10:48am April 17, 2025 11:14am Kelly Morrissey RPH Recent Diagnosis Onset Date Admit Date Factor V Leiden Unknown January 23, 2025 10:50am Pulmonary embolism and infarction Unknown January 23, 2025 10:50am RV (right ventricular) mural thrombus Unknown January 23, 2025 10:50am Factor V Leiden Unknown February 06, 2025 10 :50am Pulmonary embolism and infarction Unknown February 06, 2025 10:50am RV (right ventricular) mural thrombus Unknown February 06, 2025 10:50am Factor V Leiden Unknown February 27, 2025 1 2:48pm Pulmonary embolism and infarction Unknown February 27, 2025 12:48pm RV (right ventricular) mural thrombus Unknown February 27, 2025 12:48pm Factor V Leiden Unknown March 09, 2025 6 :53am Pulmonary embolism and infarction Unknown March 09, 2025 6:53am RV (right ventricular) mural thrombus Unknown March 09, 2025 6:53am Abnormal ECG Unknown March 13, 2025 12:40pm Factor V Leiden Unknown March 13, 2025 12:40pm Pulmonary embolism and infarction Unknown March 13, 2025 12:40pm Factor V Leiden Unknown March 21, 2025 7:48am Pulmonary embolism and infarction Unknown March 21, 2025 7:48am RV (right ventricular) mural thrombus Unknown March 21, 2025 7:48am Factor V Leiden Unknown April 03, 2025 7 :44am Pulmonary embolism and infarction Unknown April 03, 2025 7:44am RV (right ventricular) mural thrombus Unknown April 03, 2025 7:44am Factor V Leiden Unknown April 17, 2025 10:48am Pulmonary embolism and infarction Unknown April 17, 2025 10:48am RV (right ventricular) mural thrombus Unknown April 17, 2025 10:48am Functional Status Observation Response Date Recorded Dressing Patient at Baseline March 15, 2 025 2:36pm Eating Patient at Baseline March 15, 025 2:36pm Bathing Patient at Baseline March 15, 2 025 2:36pm Disability Status Patient at Baseline March 15, 2025 2:36pm Mental Status Observation Response Date Recorded Cognitive Status Patient at Baseline March 15, 2025 2:36pm Cognitive/Mental Status Assessments Assessments Diagnosis Onset Date Resolution Status Admit Date Factor V Leiden acute January 10:50am Pulmonary embolism and infarction acute January 23, 2025 10:50am RV (right ventricular) mural thrombus acute January 23, 2025 10:50am Factor V Leiden acute February 06, 2025 10:50am Pulmonary embolism and infarction acute February 06, 2025 10 :50am RV (right ventricular) mural thrombus acute February 06, 2025 10 :50am Factor V Leiden acute February 27, 2025 12:48pm Pulmonary embolism and infarction acute February 27, 2025 1 2:48pm RV (right ventricular) mural thrombus acute February 27, 2025 1 2:48pm Factor V Leiden acute March 09, 2025 6:53am Pulmonary embolism and infarction acute March 09, 2025 6 :53am RV (right ventricular) mural thrombus acute March 09, 2025 6 :53am Abnormal ECG acute March 13, 025 12:40pm Factor V Leiden acute March 12:40pm Pulmonary embolism and infarction acute March 13, 2025 12:40pm Factor V Leiden acute March 7:48am Pulmonary embolism and infarction acute March 21, 2025 7:48am RV (right ventricular) mural thrombus acute March 21, 2025 7:48am Factor V Leiden acute April 03, 2025 7:44am Pulmonary embolism and infarction acute April 03, 2025 7 :44am RV (right ventricular) mural thrombus acute April 03, 2025 7 :44am Factor V Leiden acute April 10:48am Pulmonary embolism and infarction acute April 17, 2025 10:48am RV (right ventricular) mural thrombus acute April 17, 2025 10:48am Plan of Treatment Author [facility] Authored February 27, 2025 1:01p m Referring Provider: Izaiah mehta Diagnosis: RV Thrombus, PE, FVL (Heterozygous), Protein S Deficiency INR Goal: 2-3 INR: 3.1 Warfarin Tablet Size: 5mg Wednesday: 12.5mg Wednesday: 12.5mg Wednesday: 12.5mg Wednesday: 12.5mg : 12.5mg Wednesday: 15 mg Wednesday: 12.5mg Total Weekly Dose: 90mg Continue plan above. Follow up in 4 weeks per patient preference. Unable to determine cause of slightly elevated INR. Collaborative decision to maintain weekly regimen at this time. Patient's diet sometimes varies with more Vit K. Seen by: Annette Morrissey RPh Author [facility] Authored March 09, 2025 7:22a m Referring Provider: Izaiah mehta Diagnosis: RV Thrombus, PE, FVL (Heterozygous), Protein S Deficiency INR Goal: 2-3 INR: 2.5 Warfarin Tablet Size: 5mg Wednesday: 12.5mg Wednesday: 12.5mg Wednesday: 12.5mg Wednesday: 12.5mg : 12.5mg Wednesday: 15 mg Wednesday: 12.5mg Total Weekly Dose: 90mg Continue plan above. Follow up 1 week post-procedure (in 2 weeks). Patient presents for pre-procedure INR and lovenox/procedure instructions. Patient has a cystoscopy on 03/[address] Mejia, requiring a 5-day hold. Patient presents to clinic for Lovenox administration instructions. Discussed administration of subcutaneous injections. Reviewed perioperative anticoagulation management and reviewed instructions that were provided to patient. Patient voiced understanding on low molecular weight heparin administration as well as instructions. Patient to call clinic with any additional questions or concerns. Patient is scheduled for follow-up appointment post-procedure to determine if Lovenox can be discontinued with therapeutic INR. Patient confirms understanding. Lovenox rx has been called into patient's pharmacy and patient states that he has received a text regarding the prescription. Seen by: Annette Morrissey RPh Author [facility] Authored April 03, 2025 8:23a m Referring Provider: Izaiah mehta Diagnosis: RV Thrombus, PE, FVL (Heterozygous), Protein S Deficiency INR Goal: 2-3 INR: 2.4 Warfarin Tablet Size: 5mg Wednesday: 12.5mg Wednesday: 12.5mg Wednesday: 12.5mg Wednesday: 12.5mg : 12.5mg Wednesday: 15 mg Wednesday: 12.5mg Total Weekly Dose: 90mg Continue plan above. Follow up in 2 weeks for pre-procedure/bridging instructions. Patient is scheduled for bladder surgery on 04/24 which requires a 5 day hold + bridging. Seen by: Annette Morrissey [facility] Author Kelly Morrissey [facility] Authored April 17, 2025 11:1 4am Referring Provider: Izaiah mehta Diagnosis: RV Thrombus, PE, FVL (Heterozygous), Protein S Deficiency INR Goal: 2-3 INR: 3.0 Warfarin Tablet Size: 5mg Wednesday: 12.5mg Wednesday: 12.5mg Wednesday: 12.5mg Wednesday: 12.5mg : 12.5mg Wednesday: 15 mg Wednesday: 12.5mg Total Weekly Dose: 90mg Continue plan above. Follow up 1 week post-procedure (in 2 weeks). Patient presents for pre-procedure INR and lovenox/procedure instructions. Patient has a cystoscopy on 04/[address] Mejia, requiring a 5-day hold + bridging. Warfarin hold begins in 2 days (04/19). Patient presents to clinic for Lovenox administration instructions. Discussed administration of subcutaneous injections. Reviewed perioperative anticoagulation management and reviewed instructions that were provided to patient. Patient voiced understanding on low molecular weight heparin administration as well as instructions. Patient to call clinic with any additional questions or concerns. Patient is scheduled for follow-up appointment post-procedure to determine if Lovenox can be discontinued with therapeutic INR. Patient confirms understanding. Lovenox rx has been picked up. Seen by: Annette Morrissey [facility] Author Levi Dos Santos [facility] Authored January 23, 2025 11: 11am Referring Provider: Izaiah mehta Diagnosis: RV Thrombus, PE, FVL (Heterozygous), Protein S Deficiency INR Goal: 2-3 INR: 2.0 Warfarin Tablet Size: 5mg Wednesday: 12.5mg Wednesday: 12.5mg Wednesday: 12.5mg Wednesday: 12.5mg : 12.5mg Wednesday: 15 mg Wednesday: 12.5mg Total Weekly Dose: 90mg Continue plan above. Follow up in 2 weeks. Patient reports that they will be completing their Bactrim on 01/24. Patient also reports increasing their intake of vegetables to help bring down their INR. Patient reports no hematuria or diarrhea since last visit. Seen by: Levi Dos Santos PharmD Candidate, Cleo Flood PharmD CACP Author [facility] Authored February 06, 2025 11:01a m Referring Provider: Izaiah mehta Diagnosis: RV Thrombus, PE, FVL (Heterozygous), Protein S Deficiency INR Goal: 2-3 INR: 3.1 Warfarin Tablet Size: 5mg Wednesday: 12.5mg Wednesday: 12.5mg Wednesday: 12.5mg Wednesday: 12.5mg : 12.5mg Wednesday: 15 mg Wednesday: 12.5mg Total Weekly Dose: 90mg Continue plan above. Follow up in 3 weeks. Unable to determine cause of slightly elevated INR. Seen by: Annette Morrissey RPh Author Kelly Morrissey [facility] Authored March 21, 2025 8:09 am Referring Provider: Izaiah mehta Diagnosis: RV Thrombus, PE, FVL (Heterozygous), Protein S Deficiency INR Goal: 2-3 INR: 2.5 Warfarin Tablet Size: 5mg Wednesday: 12.5mg Wednesday: 12.5mg Wednesday: 12.5mg Wednesday: 12.5mg : 12.5mg Wednesday: 15 mg Wednesday: 12.5mg Total Weekly Dose: 90mg Discontinue lovenox injections. Continue plan above. Follow up in 2 weeks. Patient presents ~ 1 week post hospital discharge. Patient began warfarin hold for a bladder surgery on 03/10 and bridging on 03/12. On 03/13 patient was admitted to [facility] [place] [place] after an abnormal EKG at pre-surgical testing on 03/12 and another abnormal reading with repeat EKG on 03/13. Patient had cardiac cath on 03/15. Patient states that no abnormalities were found aside from LV wall thickness which will be monitored. Cardiology recommended for patient to resume warfarin and continue bridging after the procedure. Considering INR is 1.9, clinical decision to stop bridging and continue above warfarin regimen. Bladder surgery has been rescheduled to 04/24. Seen by: Annette Morrissey RPh Future Tests Future scheduled test information is unavailable Pending Tests Pending diagnostic test information is unavailable Future Visits Future appointment information is unavailable Referrals to Other Providers Reason for Referral Referral Start Date Provider Provider Contact Information Provider Address Previously scheduled appointment. [facility] Anticoagulation Work Phone: [address] [place] [phone] Ozzie traore MD Email: [email or web address] Work Phone: [address] [facility] [address] [facility] [address] You have been scheduled for a follow up appointment for the following date and time, please call to reschedule if needed. Gamal Ruiz , DO Work Phone: [address] [facility], [address] [facility] [address] Future Procedures Procedure Name Ordered Date Scheduled Date Admit Status Order March 13, 2025 12:40pm March 13, 2025 12:40pm Cardiology PRN Orders March 15, 2025 10:35am Ju ne 2024 10:35am Discharge Order March 15, 2025 12:59pm March 12:59pm Future Medications Future medication information is unavailable Patient Instructions Instruction Admit Date Cardiac catheterization - Norma lópez instructions Know your Meds March 13, 2025 12:40pm Goals Preferences Type Detail Treatment Intervention Code Status: Full Code
[2025-04-17 08:21] VITALS: BP 108/71; PULSE 53; TEMP 36.3; O2SAT 100; BMI 23.2
--- NOTE | 2025-04-17 08:54 | P.GSHP_ITS ---
History of Present Illness History of Present Illness Chief complaint: BLADDER TUMOR/LESION, BPH, HEMATURIA Narrative: Mr. Walter Jansen is a pleasant 49-year-old male who presents to presurgical testing who has had recent gross hematuria bladder tumor and lesions and is scheduled for cystoscopy\TURBT with Dr. Mejia on 04/24/2025 he does have a history of pulmonary embolism diagnosed in 2018 with the discovery of factor V deficiency Review of Systems ROS Narrative REVIEW OF SYSTEMS: Negative except as stated in HPI, ten or more systems reviewed. Constitutional: No fever, chills, weakness ENT: No sore throat or epistaxis Cardiovascular: No edema, chest pain, palpitations, or activity intolerance Respiratory: No shortness of breath, cough, or wheezing Musculoskeletal: No joint pain or swelling Gastrointestinal: No abdominal pain, constipation, diarrhea, or vomiting Genitourinary: History of hematuria and bladder tumor\lesion, Neurological: No numbness, tingling, weakness, or headache Psychiatric: No mood changes PFSH PFSH Medical History BPH with obstruction/lower urinary tract symptoms ?N40.1 - Benign prostatic hyperplasia with lower urinary tract symptoms (ICD- 10) ?N13.8 - Other obstructive and reflux uropathy (ICD-10) 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 (ICD-10) BPH (benign prostatic hyperplasia) ?N40.0 - Benign prostatic hyperplasia without lower urinary tract symptoms (ICD-10) Hyperlipidemia ?E78.5 - Hyperlipidemia, unspecified (ICD-10) Hematuria ?R31.9 - Hematuria, unspecified (ICD-10) Lesion of bladder ?N32.9 - Bladder disorder, unspecified (ICD-10) Bladder tumor ?D49.4 - Neoplasm of unspecified behavior of bladder (ICD-10) Pulmonary embolism ?I26.99 - Other pulmonary embolism without acute cor pulmonale (ICD-10) Factor V deficiency ?D68.2 - Hereditary deficiency of other clotting factors (ICD-10) Surgical History S/P excision of lipoma ?Z98.890 - Other specified postprocedural states (ICD-10) ?Z86.018 - Personal history of other benign neoplasm (ICD-10) H/O colonoscopy ?Z98.890 - Other specified postprocedural states (ICD-10) H/O cystoscopy ?Z98.890 - Other specified postprocedural states (ICD-10) Family History Other Family history of diabetes mellitus Family history of stroke Social History (Updated 03/12/25 @ 08:17 by Marissa Bee NP) Within the past year, how often did you have a drink containing alcohol: monthly or less Smoking status: Never smoker Non-prescribed substance use: denies use 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 Highest level of school completed/degree received: high school graduate Meds Home Medications and Allergies Home Medications ?Medication ?Instructions ?Recorded ?Confirmed ?Type enoxaparin 120 mg/0.8 mL 120 mg subcut Q24H factor V 03/12/25 04/17/25 History subcutaneous syringe warfarin 5 mg tablet 5 mg PO DAILY 03/12/2504/17 History Allergies Allergy/AdvReac Type Severity Reaction Status Date / Time No Known Drug Allergies Allergy Verified 04/17/25 08:21 Exam Narrative Exam Narrative: Constitutional: Awake, alert, comfortable, well-appearing, nontoxic, interactive, vital signs as charted Head: Normocephalic, atraumatic Eyes: Conjunctiva and lids normal to inspection, pupils normal ENT: Tympanic membranes pearly coates, nonerythematous, noninjected, naris patent, posterior oropharynx clear, oral mucosa moist Neck: Supple, normal appearance, normal range of motion, no meningeal signs, no lymphadenopathy no bruit Respiratory: No respiratory distress, breath sounds clear Cardiovascular: Regular rate and rhythm, strong and regular heart tones Abdomen: Nontender, normal bowel sounds, soft, no CVA tenderness Musculoskeletal: Normal gait, no swelling or edema Skin: No rashes or induration, no lesions, only visible skin inspected Neuro: No neurological deficits, normal sensation Psychiatric: Oriented ?3, normal affect Constitutional Vital Signs, click to edit/add: Last Vital Signs Temp 97.3 F L 04/17/25 08:21 Pulse 53 L 04/17/25 08:21 Resp 18 04/17/25 08:21 BP 108/71 04/17/25 08:21 Pulse Ox 100 04/17/25 08:21 O2 Del Method Room Air 04/17/25 08:21 Assessment and Plan Assessment and Plan (1) Bladder tumor: (2) Lesion of bladder: (3) Hematuria: Plan Cystoscopy for/TURBT scheduled with Dr. Mejia on 04/24/2025
[2025-04-24] VITALS (12 sets, daily range): BP systolic 98–127; BP diastolic 61–87; PULSE 48–58; TEMP 36.2–36.4; O2SAT 94–100; BMI 23.0
--- OUTSIDE RECORDS SUMMARY | 2025-04-24 08:26 | XMS_ITS | Clinical Summary ---
Author Organization [facility] Address [address] [place] [id number] Care Team Providers Care Order Management Specialist Name Role Phone Izaiah Watson MD Primary Care Provider [phone] Duane Armand Christie Unavailable Kaylyn Allen RN Unavailable [phone] Radha Bardales PA-C Unavailable [phone] Allergies No known active allergies Medications warfarin [...] N ot on file 09/12/2020 Data from: [email or web address] Last address used for calculation Not on [...] 2) 2024 Influenza Vaccine (#1) 2025 Insurance [facility] MEDICAID Care Teams Order Management Specialist Relationship Specialty Start Date End Date Izaiah Watson MD [address] [place] [phone] PCP - General Family Medicine 05/18/18 Armand Zepeda [address] [place] [phone] Physician Hematology/Oncology 05/18/18 Kaylyn Allen RN [address] [place] [address] [place] [address] Green Hide Inspector 05/18/18 Radha Bardales PA-C [address] [place] [address] [place] [address] Hematology/Oncology 05/18/18
--- OUTSIDE RECORDS SUMMARY | 2025-04-24 08:26 | XMS_ITS | Encounter Summary ---
Author Organization [facility] Address [address] [place] [address] Phone Care Team Providers Care Life Trainer Name Role Phone Unavailable Primary Care Provider Unavailabl e Encounter Details Date Type Department Care Team (Late st Contact Info) Description 03/14/2025 Scanned Document [facility] [address] [place] [phone] Scanning, Generic Provider Social History Tobacco Use [...] Description 12/13/2025 3:00 PM EDT Office Visit [facility] [address] [phone] Ozzie Sharma MD 703 [facility] 2, [address] [address] documented as of this encounter Visit Diagnoses Not on filedocumented in this encounter
--- OUTSIDE RECORDS SUMMARY | 2025-04-24 08:26 | XMS_ITS | Clinical Summary ---
Author Organization [facility] Address [address] [place] [address] Phone Care Team Providers Care Advanced Seal Delivery System Name Role Phone Unavailable Primary Care Provider Unavailabl e Encounters Date Type Department Care Team Description 03/14/2025 [address]anned Document [facility] [address] [place] [address] Scanning, Generic Provider 03/13/2025 Scanned Document [facility] [address] [place] [address] Scanning, Generic Provider from Last [...] Description 12/13/2025 3:00 PM EDT Office Visit [facility] [address] [phone] Ozzie Sharma MD 703 [facility] 2, [address] [address] Procedures Procedure Name Priority Date/Time Associated Diagnosis Comments ECHOCARDIOGRAM 03/13/2025 from Last 3 Months Results * Echocardiogram (03/13/2025) Narrative 03/13/2025 Ordered by an unspecified provider. us Generic Provider Scanning CV ECHO PROCEDURES Fin al Result from Last 3 Months
--- OUTSIDE RECORDS SUMMARY | 2025-04-24 08:26 | XMS_ITS | Encounter Summary ---
Author Organization [facility] Address [address] 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 [address] [place] [phone] Scanning, Generic Provider Social History Tobacco Use [...] Description 12/13/2025 3:00 PM EDT Office Visit [facility] [address] [phone] Ozzie Sharma MD 703 [facility] 2, [address] [address] documented as of this encounter Procedures Procedure Name Priority Date/Time Associated Diagnosis Comments ECHOCARDIOGRAM 03/13/2025 documented in this encounter Results * Echocardiogram (03/13/2025) Narrative 03/13/2025 Ordered by an unspecified provider. us Generic Provider Scanning CV ECHO PROCEDURES Fin al Result documented in this encounter Visit Diagnoses Not on filedocumented in this encounter
[2025-04-24 09:03] LABS: INR 1.08; Partial Thromboplastin Time 24.0 sec (22.3-36.2); Prothrombin Time 11.4 sec (9.0-11.6)
[2025-04-24] MEDS: CEFAZOLIN SODIUM 2 GM/50 ML D5W PREMIX IV (09:53)
--- NOTE | 2025-04-24 10:43 | P.URON_ITS ---
Urology Surgery Operative Note Operative Note Procedure Date: 04/24/25 Time Out Performed: yes Pre-op Diagnosis: Gross hematuria and bladder lesions Post-op Diagnosis: same as pre-op Procedures performed: 1. Cystoscopy. 2. Transurethral resection of bladder lesions approximately 3 cm. Anesthesia: GETA Primary Surgeon: Phong Mejia Complications: None Estimated blood loss (mL): 10 Findings: Small papillary lesions on the floor of the bladder on the floor near the right side of the bladder neck Specimens: Bladder lesions Drains: None Indications for Procedures: This gentleman had gross hematuria and a negative CTU. Cystoscopy revealed persistent papillary erythematous and flesh colored lesions. He now presents for cystoscopy and resection of these lesions. He has signed an informed consent after risks were explained. Detailed description of Procedure: The patient was brought to the operating room and placed on the operating room table in the supine position. SCDs were placed on the lower extremities and turned on and functioning during the entire case. Timeout was done by all pa rties in the room. We all agreed upon the patient's identification and the planned procedures for this patient. Genn. anesthesia was then administered. The patient was then repositioned into the modified dorsal lithotomy position. All pressure points were satisfactorily padded. Genitalia were sterilely prepped and draped in usual fashion. I started by passing a 26 Far[place] Olympus resectoscope with a standard bipolar loop electrode per urethra and into the bladder. The anterior urethra was remarkable for a minimal stricture in the bulbar region. The prostate revealed by lobar hypertrophy with some friability. Careful panendoscopy in the bladder revealed similar raised lesions on the right floor. The red areas towards the left floor were now absent. I then uniformly and deeply resected these lesions on the floor on the right. All of the tissue was removed using the Ilich evacuator. It was sent for permanent sections. The resection bed was thoroughly coagulated. Upon completion, there was no evidence of bleeding. All of the tissue was removed. There were no bladder lesions remaining. Ureteral orifices E flux to clear urine. The bladder was drained of its contents and the scope was then removed. I elected not to place a Penaloza catheter. The anesthetic was then reversed. He was then transferred to a gurwest pawlet bed and wheeled to PACU in stable condition.
== END 2025-04-24 12:05 | disposition home or self-care (01) ==
PROVIDERS: Family Provider Family Medicine; PCP Student in an Organized Health Care Education/Training Program; Visit Provider Urology
PROC: (CPT 912; principal; 2025-04-24 09:25)
DX: N32.9 Bladder disorder, unspecified (principal); N30.81 Other cystitis with hematuria; Z86.711 Personal history of pulmonary embolism; E78.5 Hyperlipidemia, unspecified; N40.0 Benign prostatic hyperplasia without lower urinary tract symptoms; Z79.01 Long term (current) use of anticoagulants; K21.9 Gastro-esophageal reflux disease without esophagitis
CPT/HCPCS: 52234; 36415; 85610; 85730; 88305; J0690; J1100; J2250; J2405; J2704; J3010